=== PATIENT | female | born 1935 | race Caucasian/White ===

== ENCOUNTER → 2016-06-15 | Outpatient (CLI) | payer OTHER ==
[~2016-06-15] MED LIST: ACET325T96 PO; ASPCH81X PO; DILT-113 PO; ESCI10TA17 PO; LORA-741 PO; MULT-506 PO
[2016-06-15 15:44] LABS: BASO % 0.2 %; BASO ABS # 0.01 K/uL (0-0.2); EOS % 2.8 %; HEMATOCRIT 35.7 % (37-47); IG% 0.2 %; LYMPH % 24.8 %; LYMPH ABS # 1.57 K/uL (1.2-3.4); MEAN CELL VOLUME 85.4 fL (80-100); MEAN CORPUSCULAR HEMOGLOBIN 26.1 pg (25-34); MEAN CORPUSCULAR HGB CONC 30.5 g/dl (32-36); MEAN PLATELET VOLUME 11.6 fL (7.4-10.4); MONO % 8.5 %; NEUT % 63.5 %; PLATELET COUNT 373 K/uL (130-400); RED BLOOD COUNT 4.18 M/uL (4.2-5.4); WHITE BLOOD COUNT 6.32 K/uL (4.8-10.8)
[2016-06-15 16:09] LABS: ANISOCYTOSIS PRESENT; COMPLETE YES; LARGE PLATELETS 1+
== END | disposition home or self-care (01) ==
LOC: C.LABSPEC 15:20
PROVIDERS: ATTEND Internal Medicine
DX: D50.9 Iron deficiency anemia, unspecified (principal)

== ENCOUNTER → 2016-08-15 | Outpatient (CLI) | payer OTHER ==
[2016-08-15 15:53] LABS: BASO % 0.4 %; BASO ABS # 0.03 K/uL (0-0.2); COMPLETE YES; EOS % 4.3 %; HEMATOCRIT 36.5 % (37-47); IG% 0.1 %; LYMPH % 22.2 %; LYMPH ABS # 1.66 K/uL (1.2-3.4); MEAN CELL VOLUME 91.7 fL (80-100); MEAN CORPUSCULAR HEMOGLOBIN 29.9 pg (25-34); MEAN CORPUSCULAR HGB CONC 32.6 g/dl (32-36); MEAN PLATELET VOLUME 10.6 fL (7.4-10.4); MONO % 8.6 %; NEUT % 64.4 %; PLATELET COUNT 409 K/uL (130-400); RED BLOOD COUNT 3.98 M/uL (4.2-5.4); WHITE BLOOD COUNT 7.48 K/uL (4.8-10.8)
== END | disposition home or self-care (01) ==
LOC: C.LABSPEC 11:15
PROVIDERS: ATTEND Internal Medicine
DX: D50.9 Iron deficiency anemia, unspecified (principal)

== ENCOUNTER → 2016-12-14 | Outpatient (CLI) | payer OTHER ==
[2016-12-14 13:22] LABS: BASO % 0.3 %; BASO ABS # 0.02 K/uL (0-0.2); COMPLETE YES; IG% 0.1 %; LYMPH % 26.3 %; LYMPH ABS # 2.09 K/uL (1.2-3.4); MEAN CELL VOLUME 97.7 fL (80-100); MEAN CORPUSCULAR HEMOGLOBIN 31.9 pg (25-34); MEAN CORPUSCULAR HGB CONC 32.6 g/dl (32-36); MEAN PLATELET VOLUME 10.7 fL (7.4-10.4); MONO % 6.9 %; NEUT % 61.4 %; PLATELET COUNT 363 K/uL (130-400); RED BLOOD COUNT 3.89 M/uL (4.2-5.4); WHITE BLOOD COUNT 7.94 K/uL (4.8-10.8)
[2016-12-14 13:54] LABS: ALT/SGPT 30 U/L (12-78); AST/SGOT 27 U/L (15-37); BLOOD UREA NITROGEN 17 mg/dl (7-18); BUN/CREATININE RATIO 11.9 (10-20); CALCIUM 9.1 mg/dl (8.5-10.1); CARBON DIOXIDE 21 mmol/L (21-32); CHLORIDE 113 mmol/L (98-107); GLUCOSE 94 mg/dl (70-99); POTASSIUM 4.7 mmol/L (3.5-5.1); SODIUM 141 mmol/L (136-145)
[2016-12-14 13:56] LABS: ALB/GLOB RATIO 0.9 (0.9-2); ALKALINE PHOSPHATASE 102 U/L (45-117); CHOLESTEROL 207 mg/dl (0-200); CHOLESTEROL/HDL RATIO 3.1; HDL CHOLESTEROL 66 mg/dl; TRIGLYCERIDES 271 mg/dl (0-150); VERY LOW DENSITY LIPOPROT CALC 54 mg/dl
== END | disposition home or self-care (01) ==
LOC: C.LABSPEC 09:15
PROVIDERS: ATTEND Internal Medicine
DX: Z00.00 Encounter for general adult medical examination without abnormal findings (principal); I10 Essential (primary) hypertension; E78.5 Hyperlipidemia, unspecified; D64.9 Anemia, unspecified

== ENCOUNTER 2017-07-23 11:38 | Inpatient (IN) | payer OTHER ==
[2017-07-23] VITALS (12 sets, daily range): BP systolic 133–169; BP diastolic 56–67; PULSE 76–89; TEMP 36.3–37.3; O2SAT 94–96; BMI 15.5
[~2017-07-23] VITALS: Ht 154.9 cm; Wt 36.7 kg
[~2017-07-23 11:38] MED LIST changes: +ACET-1693 PO; -ACET325T96 PO
[2017-07-23] MEDS ORDERED: SODIUM CHLORIDE 0.9% 1000ML 1,000 ML IV STA (12:23)
--- NOTE | 2017-07-23 12:36 | EMERGENCY ROOM VISIT NOTE ---
History Report prepared by Bina: Segun Montelongo Under the Supervision of: Dr. Bette Collins M.D. First contact with patient: 12:18 Chief Complaint: SYNCOPE (NEAR SYNCOPE) Stated Complaint: NEAR SYNCOPE Nursing Triage Summary: See triage note History of Present Illness The patient is an 82 year old female who presents to the Emergency Room with complaints of constant lightheadedness beginning a few days ago. The patient states she was at [facility] this morning when she became dizzy and nauseous, in addition to her lightheadedness. She reports she has also developed shortness of breath and palpitations upon exertion over the past few days. The patient notes she has been producing more mucus as normal as well. She states she has been eating and drinking fluids, but she has still been thirsty. The patient reports she has an ostomy bag after partial gastrectomy and part of her colon removed after a reported viscous perforation. She notes she takes blood pressure medication and an iron pill. The patient states she has a history of basal cell removed from her forehead. She denies urinary symptoms. Source of History: patient Onset: few days ago Position: other (global) Quality: other (lightheadedness) Timing: constant Associated Symptoms: + SOB (on exertion), + nausea, No urinary symptoms Note: Associated symptoms: palpitations upon exertion, dizziness, more mucus production Review of Systems See HPI for pertinent positives & negatives. A total of 10 systems reviewed and were otherwise negative. Past Medical & Surgical Medical Problems: (1) Stomach ulcer Surgical Problems: (1) H/O resection of stomach Family History Patient reports no known family medical history. Social History Smoking Status: Former Smoker Alcohol Use: none Drug Use: none Marital Status: Occupation Status: retired Current/Historical Medications Scheduled Aspirin (Aspirin Chewable), 81 MG PO QAM Diltiazem Hcl Ext Rel (Tiazac), 180 MG PO QAM Escitalopram (Lexapro), 10 MG PO HS Ferrous Sulfate (Kp Ferrous Sulfate), 1 TAB PO DAILY Lorazepam (Ativan), 0.5 MG PO HS Multivitamin (Multivitamin), 1 TAB PO QAM Scheduled PRN Acetaminophen (Tylenol), 500 MG PO Q4H PRN for Pain Allergies Coded Allergies: No Known Allergies (Verified , 07/23/17) Physical Exam Vital Signs Date Time Temp Pulse Resp B/P (MAP) Pulse Ox O2 Delivery O2 Flow Rate FiO2 07/23/17 15:30 81 18 130/77 96 Room Air 07/23/17 13:30 82 18 134/62 95 Room Air 07/23/17 12:47 85 20 141/60 96 Room Air 79 140/60 93 130/50 07/23/17 12:07 79 07/23/17 11:40 36.5 86 18 149/50 96 Room Air 07/23/17 11:40 96 Room Air Physical Exam Vital signs reviewed. General: Elderly, well-appearing 82 year old female, in no significant distress. HEENT: No scleral icterus, PERRLA, neck supple. Atraumatic. Cardiovascular: Regular rate and rhythm, no extra sounds. Pulmonary: Clear to auscultation bilaterally, normal work of breathing. Abdomen: Soft, nontender, nondistended, positive bowel sounds. RLQ ostomy in place. Stool: Guaiac positive, dark melanotic stool. Ostomy Musculoskeletal: Atraumatic, no peripheral edema. Neurologic: Patient awake alert and oriented x 3, full strength in all 4 extremities. Cranial nerves 2 through 12 grossly intact. Skin: Warm, dry, no rash Medical Decision & Procedures Laboratory Results Test 07/23/17 11:45 07/23/17 12:44 07/23/17 12:52 07/23/17 13:25 RDW Standard Deviation 47.9 fL (36.4-46.3) RDW Coefficient of Variation 13.9 % (11.5-14.5) White Blood Count 10.00 K/uL (4.8-10.8) Red Blood Count 2.37 M/uL (4.2-5.4) Hemoglobin 7.7 g/dL (12.0-16.0) Hematocrit 23.1 % (37-47) Mean Corpuscular Volume 97.5 fL (80-100) Mean Corpuscular Hemoglobin 32.5 pg (25-34) Mean Corpuscular Hemoglobin Concent 33.3 g/dl (32-36) Platelet Count 377 K/uL (130-400) Mean Platelet Volume 10.2 fL (7.4-10.4) Neutrophils (%) (Auto) 74.2 % Lymphocytes (%) (Auto) 17.6 % Monocytes (%) (Auto) 6.4 % Eosinophils (%) (Auto) 1.4 % Basophils (%) (Auto) 0.2 % Neutrophils # (Auto) 7.42 K/uL (1.4-6.5) Lymphocytes # (Auto) 1.76 K/uL (1.2-3.4) Monocytes # (Auto) 0.64 K/uL (0.11-0.59) Eosinophils # (Auto) 0.14 K/uL (0-0.5) Basophils # (Auto) 0.02 K/uL (0-0.2) Immature Granulocyte % (Auto) 0.2 % Immature Granulocyte # (Auto) 0.02 K/uL (0.00-0.02) Est Creatinine Clear Calc Drug Dose 20.5 ml/min Magnesium Level 2.0 mg/dl (1.8-2.4) Total Bilirubin 0.2 mg/dl (0.2-1) Direct Bilirubin < 0.1 mg/dl (0-0.2) Aspartate Amino Transf (AST/SGOT) 22 U/L (15-37) Alanine Aminotransferase (ALT/SGPT) 18 U/L (12-78) Alkaline Phosphatase 69 U/L (45-117) Total Creatine Kinase 89 U/L (26-192) Creatine Kinase MB 2.0 ng/ml (0.5-3.6) Creatine Kinase MB Ratio 2.2 (0-3.0) Total Protein 6.4 gm/dl (6.4-8.2) Albumin 3.0 gm/dl (3.4-5.0) Bedside Glucose 135 mg/dl (70-90) Bedside Troponin I < 0.030 ng/ml (0-0.045) Prothrombin Time 10.0 SECONDS (9.0-12.0) Prothromb Time International Ratio 1.0 (0.9-1.1) Activated Partial Thromboplast Time 20.7 SECONDS (21.0-31.0) Partial Thromboplastin Ratio 0.8 Laboratory results per my review. Medications Administered Medications (Trade) Dose Ordered Sig/Rayo Route Start Time Stop Time Status Last Admin Dose Admin Sodium Chloride 1,000 ml @ 125 mls/hr Q8H STAT IV 07/23/17 12:23 07/23/17 20:22 DC 07/23/17 12:56 125 MLS/HR Pantoprazole Sodium 80 mg/ Dextrose 120 ml @ 480 mls/hr 1530 IV 07/23/17 15:30 07/23/17 15:45 DC 07/23/17 15:49 480 MLS/HR ECG Indication: weakness Rate (beats per minute): 87 Rhythm: normal sinus Findings: RBBB, no acute ischemic change, no ectopy, other (LVH, repolarization abnormality) Change: Patient's electrocardiogram interpreted by me. ED Course 1221: Past medical records reviewed. The patient was evaluated in room B07. A complete history and physical examination was performed. 1223: Ordered Sodium Chloride 1000 ml @ 125 mls/hr IV 1424: I discussed laboratory and radiographic results with her. She verbalized agreement of the treatment plan. I consented the patient for blood transfusion after explaining the risk and benefits. The patient will be evaluated for further management and care. 1458: I discussed the patient's case with Dr. Navarro [facility] Hospitalist. The patient will be evaluated for further management and care. 1500: Ordered Pantoprazole Sodium 1 ea IV Medical Decision Differential diagnosis: Etiologies such as metabolic, infection, hypo/hyperglycemia, electrolyte abnormalities, cardiac sources, intracerebral event, toxicologic, neurologic, as well as others were entertained. This pt was evaluated and appeared to be in no distress. IV access was obtained and lab work was drawn. Pt was placed on the cardiac exercise specialist. Pt is mildly orthostatic. Lab work reveals an anemia with Hgb of 7.7. Pt was hydrated with NSS. She was type and crossed for 2 units PRBC. Stool is melanotic and guaiac positive. IV protonix was initiated. Pt was consented and transfused 1 unit PRBC. She and her son were informed of the findings. Pt will be evaluated by the hospitalist service for further management. Medication Reconcilliation Current Medication List: was personally reviewed by me Blood Pressure Screening Patient's blood pressure: Elevated blood pressure Blood pressure disposition: Elevated BP felt to be situational Consults Time Called: [phone] Consulting Physician: Dr. Navarro [facility] Hospitalist Returned Call: [phone] I discussed the patient's case with Dr. Navarro [facility] Hospitalist. The patient will be evaluated for further management and care. Impression Primary Impression: GI bleed Additional Impressions: Anemia Near syncope Critical Care I have personally spent greater than 30 minutes of critical care time in the direct management of this patient. This includes bedside care, interpretation of diagnostic studies, and testing, discussion with consultants, patient, and family members, and other required patient management activities. This 30 minutes is in excess of all separately billable procedures. Scribe Attestation The scribe's documentation has been prepared under my direction and personally reviewed by me in its entirety. I confirm that the note above accurately reflects all work, treatment, procedures, and medical decision making performed by me. Departure Information Dispostion Being Evaluated By Hospitalist Referrals Dharmesh Spann M.D. (PCP) Patient Instructions My [facility] Problem Qualifiers
[2017-07-23] MEDS ORDERED: ACET-1256 PO (13:02)
[2017-07-23] MEDS ORDERED: FERR1TAB13 PO (13:02)
[2017-07-23 13:25] LABS: BASO % 0.2 %; BASO ABS # 0.02 K/uL (0-0.2); EOS % 1.4 %; EOS ABS # 0.14 K/uL (0-0.5); HEMATOCRIT 23.1 % (37-47); HEMOGLOBIN 7.7 g/dL (12.0-16.0); IG# 0.02 K/uL (0.00-0.02); LYMPH % 17.6 %; LYMPH ABS # 1.76 K/uL (1.2-3.4); MEAN CELL VOLUME 97.5 fL (80-100); MEAN CORPUSCULAR HEMOGLOBIN 32.5 pg (25-34); MEAN CORPUSCULAR HGB CONC 33.3 g/dl (32-36); MEAN PLATELET VOLUME 10.2 fL (7.4-10.4); MONO % 6.4 %; MONO ABS # 0.64 K/uL (0.11-0.59); NEUT % 74.2 %; NEUT ABS # 7.42 K/uL (1.4-6.5); PLATELET COUNT 377 K/uL (130-400); RED CELL DISTRIBUTION WIDTH CV 13.9 % (11.5-14.5); RED CELL DISTRIBUTION WIDTH SD 47.9 fL (36.4-46.3)
[2017-07-23 13:33] LABS: ALT/SGPT 18 U/L (12-78); BLOOD UREA NITROGEN 22 mg/dl (7-18); CALCIUM 8.7 mg/dl (8.5-10.1); CARBON DIOXIDE 19 mmol/L (21-32); CREATININE 1.31 mg/dl (0.60-1.20); GLUCOSE 190 mg/dl (70-99); POTASSIUM 4.2 mmol/L (3.5-5.1); SODIUM 140 mmol/L (136-145)
[2017-07-23 13:38] LABS: ALKALINE PHOSPHATASE 69 U/L (45-117); AST/SGOT 22 U/L (15-37); TOTAL PROTEIN 6.4 gm/dl (6.4-8.2)
[2017-07-23 13:55] LABS: PTT PATIENT 20.7 SECONDS (21.0-31.0)
[2017-07-23] MEDS ORDERED: ACETAMINOPHEN 500 MG TAB PO PRN (15:30)
[2017-07-23] MEDS ORDERED: PANTOprazole INJ 80 MG in DEXTROSE 5% 100ML IV SCH (15:30)
[2017-07-23] MEDS ORDERED: PANTOprazole INJ 40 MG in DEXTROSE 5% 100ML IV SCH (15:45)
[2017-07-23] MEDS ORDERED: SODIUM CHLORIDE 0.9% 1000ML 1,000 ML IV SCH (16:00)
--- NOTE | 2017-07-23 16:02 | History and Physical ---
History & Physical Date & Time of Service: Jul 23, 2017 at 15:11 Chief Complaint: Near Syncope Primary Care Physician: Dharmesh Spann M.D. History of Present Illness is an 82 year old woman here for near syncope multiple times over the past few days. During druze today she felt unwell while walking and had to sit and put her head down but she does not think she lost consciousness and has not had any loc with the other episodes. No loss of control of bladder. She also had palpitations and sob with activity. She always has some black stools after taking her iron pill but has noticed that now she has black stools all the time. She has a history of GI bleed in 2016 in which her hgb dropped to 8.0. Colonoscopy/EGD at that time did not find any source of bleed ROS Constitutional: no chills, aches, sweats or fever Respiratory: no sob,cough, sputum, or wheezing Cardiac: no chest pain, palpitations, edema, orthopnea or lightheadedness GI: no abdominal pain,some nausea today, no vomiting, diarrhea or constipation : no dysuria or hesitancy Extremities: no joint pain or weakness Skin: no rash All other systems reviewed and negative Past Medical/Surgical History PMH: HTN COPD History of TIA History of GI bleeding PSH: Hemigastrectomy with cholecystectomy and colostomy C-sections 3 colostomy 2001 for stomach ulcer and necrotic bowel, recent skin biopsies, htn Family History Patient reports no known family medical history. 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) Multi-Drug Resistant Organisms History of MDRO: No Allergies Coded Allergies: No Known Allergies (Verified , 07/23/17) Home Medications Scheduled Aspirin (Aspirin Chewable), 81 MG PO QAM Diltiazem Hcl Ext Rel (Tiazac), 180 MG PO QAM Escitalopram (Lexapro), 10 MG PO HS Ferrous Sulfate (Kp Ferrous Sulfate), 1 TAB PO DAILY Lorazepam (Ativan), 0.5 MG PO HS Multivitamin (Multivitamin), 1 TAB PO QAM Scheduled PRN Acetaminophen (Tylenol), 500 MG PO Q4H PRN for Pain Physical Exam Vital Signs Date Time Temp Pulse Resp B/P (MAP) Pulse Ox O2 Delivery O2 Flow Rate FiO2 07/23/17 13:30 82 18 134/62 95 Room Air 07/23/17 12:47 85 20 141/60 96 Room Air 79 140/60 93 130/50 07/23/17 12:07 79 07/23/17 11:40 36.5 86 18 149/50 96 Room Air 07/23/17 11:40 96 Room Air General: no distress Eyes: normal inspection, PERLL Respiratory: chest non tender, clear to auscultation, normal breath sounds, no respiratory distress, no accessory muscle use Cardiac: regular rate and rhythm, no rub or gallop, systolic murmur 2/6 lusb, no edema GI/: active bowel sounds, no abd pain or tenderness, soft, non distended, abdominal bruit left mid abdomen Extremities: normal range of motion, normal strength, non tender Neuro/Psych: alert and oriented x 3, normal mood and affect Skin: normal color, dry Diagnostics Laboratory Results Results Past 24 Hours Test 07/23/17 11:45 07/23/17 12:52 07/23/17 13:25 Range/Units White Blood Count 10.00 4.8-10.8 K/uL Red Blood Count 2.37 4.2-5.4 M/uL Hemoglobin 7.7 12.0-16.0 g/dL Hematocrit 23.1 37-47 % Mean Corpuscular Volume 97.5 80-100 fL Mean Corpuscular Hemoglobin 32.5 25-34 pg Mean Corpuscular Hemoglobin Concent 33.3 32-36 g/dl Platelet Count 377 130-400 K/uL Mean Platelet Volume 10.2 7.4-10.4 fL Neutrophils (%) (Auto) 74.2 % Lymphocytes (%) (Auto) 17.6 % Monocytes (%) (Auto) 6.4 % Eosinophils (%) (Auto) 1.4 % Basophils (%) (Auto) 0.2 % Neutrophils # (Auto) 7.42 1.4-6.5 K/uL Lymphocytes # (Auto) 1.76 1.2-3.4 K/uL Monocytes # (Auto) 0.64 0.11-0.59 K/uL Eosinophils # (Auto) 0.14 0-0.5 K/uL Basophils # (Auto) 0.02 0-0.2 K/uL RDW Standard Deviation 47.9 36.4-46.3 fL RDW Coefficient of Variation 13.9 11.5-14.5 % Immature Granulocyte % (Auto) 0.2 % Immature Granulocyte # (Auto) 0.02 0.00-0.02 K/uL Sodium Level 140 136-145 mmol/L Potassium Level 4.2 3.5-5.1 mmol/L Chloride Level 107 98-107 mmol/L Carbon Dioxide Level 19 21-32 mmol/L Anion Gap 13.0 3-11 mmol/L Blood Urea Nitrogen 22 7-18 mg/dl Creatinine 1.31 0.60-1.20 mg/dl Est Creatinine Clear Calc Drug Dose 20.5 ml/min Estimated GFR () 43.5 Estimated GFR (Non- 37.6 BUN/Creatinine Ratio 16.9 10-20 Random Glucose 190 70-99 mg/dl Calcium Level 8.7 8.5-10.1 mg/dl Magnesium Level 2.0 1.8-2.4 mg/dl Total Bilirubin 0.2 0.2-1 mg/dl Direct Bilirubin < 0.1 0-0.2 mg/dl Aspartate Amino Transf (AST/SGOT) 22 15-37 U/L Alanine Aminotransferase (ALT/SGPT) 18 12-78 U/L Alkaline Phosphatase 69 45-117 U/L Total Creatine Kinase 89 26-192 U/L Creatine Kinase MB 2.0 0.5-3.6 ng/ml Creatine Kinase MB Ratio 2.2 0-3.0 Total Protein 6.4 6.4-8.2 gm/dl Albumin 3.0 3.4-5.0 gm/dl Bedside Troponin I < 0.030 0-0.045 ng/ml Prothrombin Time 10.0 9.0-12.0 SECONDS Prothromb Time International Ratio 1.0 0.9-1.1 Activated Partial Thromboplast Time 20.7 21.0-31.0 SECONDS Partial Thromboplastin Ratio 0.8 Impression Assessment and Plan Ms. Naranjo is an 82 year old woman here for GI bleed GI bleed - admit tele - consult GI - transfuse 2 units now - Protonix gtt - clear liquid diet, npo after mn - initial troponin wnl, will repeat in 6 hours given patient's symptoms HTN - continue diltiazem once taking po - hold ASA Hx depression - continue lexapro when taking po Abdominal bruit - follow up outpatient DNR No dvt chemoprophylaxis d/t gi bleed, SCDs Advanced Directives Existing Advance Directive: Yes Existing Living Will: Yes Existing Power of Layout Artist: Yes (son (Pawan Naranjo)) Resuscitation Status DO NOT RESUSCITATE Additional Copies To Dharmesh Spann M.D. 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 Discussed with BASSAM Burdick and agree with findings and plan as documented in the note. Any exceptions or clarifications are listed here: This patient is a very pleasant 82-year-old female with a history of hypertension, COPD, and TIA with previous GI bleed, who presents with presyncope , increased black stools and her colostomy bag, and dyspnea on exertion. She was found to have a hemoglobin of 7.3 in the ER-her most recent hemoglobin in December 2016 was 12.4. She was mildly orthostatic with elevation in her heart rate upon standing, but her blood pressures remained stable. All of her symptoms developed over the last 3 days. She does also report a lot of nausea and had dry heaves this morning. Vital signs reviewed Gen: AAOx3, NAD HEENT: anicteric sclerae, EOMI CV: RRR no mgr nl S1S2 Pulm: CTAB no wcr Abd: +BS soft NT ND no masses or hernias, colostomy bag with moderate amount of green stool present, no melena or maria de jesus blood Ext: no edema, 2+ DP pulses Skin: no rashes, warm/dry Neuro: full strength throughout Laboratory values reviewed, ECG reviewed This patient is an 82-year-old female with a history of HTN, COPD, TIA, with previous GI bleed, who presents with presyncope, increased black stools and her colostomy bag, PATEL, and acute blood loss anemia. Most likely peptic ulcer disease given her history of this. -Admit to telemetry given ongoing acute GI bleeding -Transfusing 2 units PRBCs -Protonix drip ordered -Serial H&H -Discussed case with gastroenterology at the bedside-no need for urgent EGD at this time, but will give mag citrate and plan for EGD and possible colonoscopy through the ostomy tomorrow -N.p.o. after midnight and give gentle IV fluid hydration -As for her COPD, she has no active symptoms and it does not appear she is on any home inhalers -SCDs only for DVT prophylaxis Documented By: Lena Navarro
[2017-07-23] MEDS ORDERED: MAGNESIUM CITRATE 296 ML/BTL PO ONE ×3 (16:15→20:00)
--- NOTE | 2017-07-23 16:25 | Gastrointestinal Consultation ---
Gastrointestinal Consultation Date of Consultation: Jul 23, 2017 Attending Physician: DR Lena Navarro Consulting Physician: Dr Terrance Chaney Reason for Consultation: GI bleeding History of Present Illness Patient is a 82 year old female with chief complaint of lightheadedness and black stool. HPI Review of EMR found DR Szymanski did EGD/colonoscopy through ostomy and Flex sig through rectum 04/2016 for Fe def anemia. EGD showed BII anastomosis, friable anastomosis, small HH, schatzis ring. Antimony through ostom showed colon length 10 cm from ostomy to valve, 2 tubular adenoma polyps 2 cm from ostomy removed by cold snare. FS was stool in rectum could not advance. Pt had the ostomy and stomach resection from some type of ulceration and necrotic bowel in 2001. Pt is on chronic Fe and stools can be dark but last 3 days dolly stools and more stool output. No abd pain No dysphagia, No change in wt, some chills, Some nausea with dry heaves this am. She has been lightheaded and presyncopal and per Etelvina randhawa. Hgb 7.7 versus 12.4 12/2016. Some shortness of breath and lightheadedness also. Son with patient for H and P. She is on daily ASA. Past Medical/Surgical History Medical Problems: (1) Anemia Status: Acute (2) GI bleed Status: Acute (3) Near syncope Status: Acute Past Medical History: HTN Past Surgical History: s/p stomach surgery and colon surgery 2001 Family History Patient reports no known family medical history. 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) Allergies Coded Allergies: No Known Allergies (Verified , 07/23/17) Current Medications Home Meds and Scripts Medications Dose Route/Sig Max Daily Dose Days Date Category Kp Ferrous Sulfate (Ferrous Sulfate) 325 Mg Tab 1 Tab PO DAILY 30 07/23/17 Reported Tylenol (Acetaminophen) 500 Mg Tab 500 Mg PO Q4H PRN 07/23/17 Reported Multivitamin (Multivitamins) Tab 1 Tab PO QAM 04/01/16 Reported Aspirin Chewable (Aspirin) 81 Mg Chew 81 Mg PO QAM 04/01/16 Reported Lexapro (Escitalopram Oxalate) 10 Mg Tab 10 Mg PO HS 03/31/15 Reported Ativan (Lorazepam) 0.5 Mg Tab 0.5 Mg PO HS 03/31/15 Reported Tiazac (Diltiazem HCl) 180 Mg Capcr 180 Mg PO QAM 03/31/15 Reported Review of Systems see HPI otherwise 10 ROS negative Physical Exam Date Time Temp Pulse Resp B/P (MAP) Pulse Ox O2 Delivery O2 Flow Rate FiO2 07/23/17 15:30 81 18 130/77 96 Room Air 07/23/17 13:30 82 18 134/62 95 Room Air 07/23/17 12:47 85 20 141/60 96 Room Air 79 140/60 93 130/50 07/23/17 12:07 79 07/23/17 11:40 36.5 86 18 149/50 96 Room Air 07/23/17 11:40 96 Room Air General Appearance: WD/WN, no apparent distress Eyes: normal inspection, PERRL ENT: hearing grossly normal, pharynx normal Respiratory/Chest: lungs clear, no respiratory distress Cardiovascular: regular rate, rhythm, no edema Abdomen: normal bowel sounds, non tender, soft, no organomegaly, no pulsatile mass, + pertinent finding (ostomy noted with brown stool in it.) Extremities: normal range of motion, non-tender 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, alert, normal mood/affect, oriented x 3 Skin: normal color, warm/dry Laboratory Results Last 24 Hours Test 07/23/17 11:45 07/23/17 12:52 07/23/17 13:25 White Blood Count 10.00 K/uL Red Blood Count 2.37 M/uL Hemoglobin 7.7 g/dL Hematocrit 23.1 % Mean Corpuscular Volume 97.5 fL Mean Corpuscular Hemoglobin 32.5 pg Mean Corpuscular Hemoglobin Concent 33.3 g/dl Platelet Count 377 K/uL Mean Platelet Volume 10.2 fL Neutrophils (%) (Auto) 74.2 % Lymphocytes (%) (Auto) 17.6 % Monocytes (%) (Auto) 6.4 % Eosinophils (%) (Auto) 1.4 % Basophils (%) (Auto) 0.2 % Neutrophils # (Auto) 7.42 K/uL Lymphocytes # (Auto) 1.76 K/uL Monocytes # (Auto) 0.64 K/uL Eosinophils # (Auto) 0.14 K/uL Basophils # (Auto) 0.02 K/uL RDW Standard Deviation 47.9 fL RDW Coefficient of Variation 13.9 % Immature Granulocyte % (Auto) 0.2 % Immature Granulocyte # (Auto) 0.02 K/uL Sodium Level 140 mmol/L Potassium Level 4.2 mmol/L Chloride Level 107 mmol/L Carbon Dioxide Level 19 mmol/L Anion Gap 13.0 mmol/L Blood Urea Nitrogen 22 mg/dl Creatinine 1.31 mg/dl Est Creatinine Clear Calc Drug Dose 20.5 ml/min Estimated GFR () 43.5 Estimated GFR (Non- 37.6 BUN/Creatinine Ratio 16.9 Random Glucose 190 mg/dl Calcium Level 8.7 mg/dl Magnesium Level 2.0 mg/dl Total Bilirubin 0.2 mg/dl Direct Bilirubin < 0.1 mg/dl Aspartate Amino Transf (AST/SGOT) 22 U/L Alanine Aminotransferase (ALT/SGPT) 18 U/L Alkaline Phosphatase 69 U/L Total Creatine Kinase 89 U/L Creatine Kinase MB 2.0 ng/ml Creatine Kinase MB Ratio 2.2 Total Protein 6.4 gm/dl Albumin 3.0 gm/dl Bedside Troponin I < 0.030 ng/ml Prothrombin Time 10.0 SECONDS Prothromb Time International Ratio 1.0 Activated Partial Thromboplast Time 20.7 SECONDS Partial Thromboplastin Ratio 0.8 Impression acute blood loss anemia--transfuse prn melena--PPI, suspect PUD from ASA use presyncope--from anemia and GI bleeding s/p stomach surgery s/p colon surgery Discussed with Dr Navarro and patient and son since stool in ostomy brown there is no current brisk bleeding so recommend blood resuscitation overnight and then endocopy tomorrow. Recommend EGD and since only 10 cm of colon be prepared to do colonoscopy through ostomy if EGD negative. Procs and risks explained which include but not limited to med reaction, bleeding, perforation, aspiration , and missed lesions.
[2017-07-23] MEDS: LORAZEPAM 0.5 MG TAB PO SCH (21:27)
[2017-07-23] MEDS: ESCITALOPRAM OXALATE 10 MG TAB PO SCH (21:27)
[2017-07-23] MEDS: PANTOprazole INJ 40 MG in DEXTROSE 5% 100ML IV SCH (21:44)
[2017-07-23 23:32] LABS: HEMATOCRIT 34.3 % (37-47); HEMOGLOBIN 11.8 g/dL (12.0-16.0)
[2017-07-23] MEDS: D5W AND NSS 1,000 ML IV SCH (23:34)
[2017-07-24] VITALS (8 sets, daily range): BP systolic 126–187; BP diastolic 47–80; PULSE 77–85; TEMP 36.4–37.2; O2SAT 94–98; Ht 154.9 cm; Wt 36.7 kg
[2017-07-24] MEDS: PANTOprazole INJ 40 MG in DEXTROSE 5% 100ML IV SCH ×3 (02:24→11:38)
[2017-07-24 05:52] LABS: HEMATOCRIT 33.1 % (37-47); HEMOGLOBIN 11.2 g/dL (12.0-16.0); MEAN CELL VOLUME 92.5 fL (80-100); MEAN CORPUSCULAR HEMOGLOBIN 31.3 pg (25-34); MEAN CORPUSCULAR HGB CONC 33.8 g/dl (32-36); MEAN PLATELET VOLUME 9.9 fL (7.4-10.4); PLATELET COUNT 272 K/uL (130-400); RED CELL DISTRIBUTION WIDTH CV 15.3 % (11.5-14.5); RED CELL DISTRIBUTION WIDTH SD 50.7 fL (36.4-46.3)
[2017-07-24 06:36] LABS: CREATININE 1.29 mg/dl (0.60-1.20); POTASSIUM 4.1 mmol/L (3.5-5.1)
[2017-07-24] MEDS: MULTIVITAMIN TAB PO SCH (07:52)
[2017-07-24] MEDS: FERROUS SULFATE 325 MG TAB PO SCH (07:52)
[2017-07-24] MEDS: DILTIAZEM HCL (TIAzac) 180 MG CAPCR PO SCH ×2 (07:52→17:00)
[2017-07-24] MEDS ORDERED: MAGNESIUM CITRATE 296 ML/BTL PO ONE (08:00)
[2017-07-24] MEDS: D5W AND NSS 1,000 ML IV SCH (11:38)
[2017-07-24 11:46] LABS: HEMATOCRIT 33.6 % (37-47); HEMOGLOBIN 11.4 g/dL (12.0-16.0)
--- NOTE | 2017-07-24 13:01 | Gastroenterology Progress Note ---
Progress Note Date of Service: Jul 24, 2017 Subjective Pt evaluation today including: conversation w/ patient, physical exam, chart review, lab review, review of studies, review of inpatient medication list CC f/u melena HPI Prep post 2nd dose of Mag citrate (this am) good with green fluid in ostomy. NO abd pain. Review of Systems Respiratory: No shortness of breath Cardiac: No chest pain Medications Current Inpatient Medications Medications (Trade) Dose Ordered Sig/Rayo Route Start Time Stop Time Status Last Admin Dose Admin Acetaminophen (Tylenol Tab) 500 mg Q4H PRN PO 07/23/17 15:30 08/22/17 15:29 Diltiazem HCl (TIAzac CAP) 180 mg QAM PO 07/24/17 09:00 08/23/17 08:59 Escitalopram Oxalate (Lexapro Tab) 10 mg HS PO 07/23/17 21:00 08/22/17 20:59 07/23/17 21:27 10 MG Lorazepam (Ativan Tab) 0.5 mg HS PO 07/23/17 21:00 08/22/17 20:59 07/23/17 21:27 0.5 MG Multivitamins (Multivitamin Tab) 1 tab QAM PO 07/24/17 09:00 08/23/17 08:59 Ferrous Sulfate (Feosol Tab) 325 mg DAILY PO 07/24/17 09:00 08/23/17 08:59 Dextrose/Sodium Chloride 1,000 ml @ 75 mls/hr [id number] IV 07/23/17 23:59 08/22/17 23:58 07/24/17 11:38 75 MLS/HR Pantoprazole Sodium 40 mg/ Dextrose 100 ml @ 20 mls/hr Q5H IV 07/23/17 21:30 08/22/17 21:29 07/24/17 11:38 20 MLS/HR Objective Vital Signs Date Time Temp Pulse Resp B/P (MAP) Pulse Ox O2 Delivery O2 Flow Rate FiO2 07/24/17 12:13 36.9 80 18 162/71 (101) 95 Room Air 07/24/17 08:00 Room Air 07/24/17 07:51 36.9 82 18 168/71 (103) 94 Room Air 07/24/17 04:00 36.6 84 16 164/74 (104) 94 Room Air 07/24/17 04:00 Room Air 07/24/17 00:05 Room Air 07/23/17 22:30 36.7 82 16 152/65 07/23/17 21:30 36.7 89 16 169/62 07/23/17 21:00 37.1 81 16 161/56 07/23/17 20:30 36.9 81 16 155/56 07/23/17 20:15 37.3 76 18 153/62 07/23/17 20:05 Room Air 07/23/17 20:00 37.3 80 18 151/64 07/23/17 19:46 36.7 80 18 157/64 96 07/23/17 18:33 37.0 76 18 133/58 94 07/23/17 18:00 37.3 77 18 143/56 96 07/23/17 17:53 36.3 79 20 153/63 Room Air 07/23/17 17:03 84 20 144/67 96 07/23/17 16:50 37.0 84 20 144/67 96 07/23/17 16:30 37.2 87 20 155/62 96 07/23/17 15:30 81 18 130/77 96 Room Air 07/23/17 13:30 82 18 134/62 95 Room Air Physical Exam General Appearance: WD/WN, no apparent distress Respiratory/Chest: lungs clear, no respiratory distress Cardiovascular: regular rate, rhythm, no edema Neurologic/Psych: normal mood/affect, oriented x 3 Skin: normal color Laboratory Results Last 24 Hours Test 07/23/17 13:25 07/23/17 18:06 07/23/17 23:15 07/24/17 05:32 Prothrombin Time 10.0 SECONDS Prothromb Time International Ratio 1.0 Activated Partial Thromboplast Time 20.7 SECONDS Partial Thromboplastin Ratio 0.8 Troponin I < 0.015 ng/ml Hemoglobin 11.8 g/dL 11.2 g/dL Hematocrit 34.3 % 33.1 % White Blood Count 6.70 K/uL Red Blood Count 3.58 M/uL Mean Corpuscular Volume 92.5 fL Mean Corpuscular Hemoglobin 31.3 pg Mean Corpuscular Hemoglobin Concent 33.8 g/dl RDW Standard Deviation 50.7 fL RDW Coefficient of Variation 15.3 % Platelet Count 272 K/uL Mean Platelet Volume 9.9 fL Sodium Level 141 mmol/L Potassium Level 4.1 mmol/L Chloride Level 111 mmol/L Carbon Dioxide Level 24 mmol/L Anion Gap 6.0 mmol/L Blood Urea Nitrogen 12 mg/dl Creatinine 1.29 mg/dl Est Creatinine Clear Calc Drug Dose 19.5 ml/min Estimated GFR () 44.3 Estimated GFR (Non- 38.3 BUN/Creatinine Ratio 9.7 Random Glucose 104 mg/dl Calcium Level 8.0 mg/dl Test 07/24/17 08:50 07/24/17 11:28 Urine Color YELLOW Urine Appearance CLEAR Urine pH 5.0 Urine Specific [place] 1.011 Urine Protein NEG Urine Glucose (UA) NEG Urine Ketones NEG Urine Occult Blood TRACE Urine Nitrite NEG Urine Bilirubin NEG Urine Urobilinogen NEG Urine Leukocyte Esterase NEG Urine WBC (Auto) 1-5 /hpf Urine RBC (Auto) 0-4 /hpf Urine Hyaline Casts (Auto) 0 /lpf Urine Epithelial Cells (Auto) 0-5 /lpf Urine Bacteria (Auto) NEG Hemoglobin 11.4 g/dL Hematocrit 33.6 % Assessment and Plan acute blood loss anemia--stable melena--PPI, suspect PUD from ASA use presyncope--from anemia and GI bleeding s/p stomach surgery s/p colon surgery EGD/colo today. . Procs and risks explained which include but not limited to med reaction, bleeding, perforation, aspiration, and missed lesions.
--- NOTE | 2017-07-24 13:29 | Hospitalist Progress Note ---
Hospitalist Progress Note Date of Service Jul 24, 2017. (Etelvina Burdick .BASSAM) Subjective Pt evaluation today including: conversation w/ patient, physical exam, chart review, lab review, review of inpatient medication list Voiding: no voiding problems Ms. Naranjo denies further sob or palpitations though she has not been out of bed much. She has been NPO for EGD today. She has not had any dark stools today ROS Constitutional: no chills, aches, sweats or fever Respiratory: no sob,cough, sputum, or wheezing Cardiac: no chest pain, palpitations, edema, orthopnea or lightheadedness GI: no abdominal pain, nausea, vomiting, diarrhea or constipation : no dysuria or hesitancy Extremities: no joint pain or weakness Skin: no rash All other systems reviewed and negative (Etelvina Burdick .BASSAM) Medications Medications (Trade) Dose Ordered Sig/Rayo Route Start Time Stop Time Status Last Admin Dose Admin Pantoprazole Sodium 80 mg/ Dextrose 120 ml @ 480 mls/hr 1530 IV 07/23/17 15:30 07/23/17 15:45 DC 07/23/17 15:49 480 MLS/HR Pantoprazole Sodium 40 mg/ Dextrose 100 ml @ 20 mls/hr Q5H IV 07/23/17 15:45 07/23/17 20:44 DC 07/23/17 16:38 20 MLS/HR Escitalopram Oxalate (Lexapro Tab) 10 mg HS PO 07/23/17 21:00 08/22/17 20:59 07/23/17 21:27 10 MG Lorazepam (Ativan Tab) 0.5 mg HS PO 07/23/17 21:00 08/22/17 20:59 07/23/17 21:27 0.5 MG Dextrose/Sodium Chloride 1,000 ml @ 75 mls/hr [id number] IV 07/23/17 23:59 08/22/17 23:58 07/24/17 11:38 75 MLS/HR Pantoprazole Sodium 40 mg/ Dextrose 100 ml @ 20 mls/hr Q5H IV 07/23/17 21:30 08/22/17 21:29 07/24/17 11:38 20 MLS/HR Magnesium Citrate (Citrate Of Magnesia Soln) 296 ml ONE ONCE PO 07/23/17 20:00 07/23/17 20:01 DC 07/23/17 21:27 296 ML Magnesium Citrate (Citrate Of Magnesia Soln) 296 ml NOW ONCE PO 07/24/17 08:00 07/24/17 08:01 DC 07/24/17 07:57 296 ML (Etelvina Burdick CRNP) Objective Vital Signs Date Time Temp Pulse Resp B/P (MAP) Pulse Ox O2 Delivery O2 Flow Rate FiO2 07/24/17 12:13 36.9 80 18 162/71 (101) 95 Room Air 07/24/17 08:00 Room Air 07/24/17 07:51 36.9 82 18 168/71 (103) 94 Room Air 07/24/17 04:00 36.6 84 16 164/74 (104) 94 Room Air 07/24/17 04:00 Room Air 07/24/17 00:05 Room Air 07/23/17 22:30 36.7 82 16 152/65 07/23/17 21:30 36.7 89 16 169/62 07/23/17 21:00 37.1 81 16 161/56 07/23/17 20:30 36.9 81 16 155/56 07/23/17 20:15 37.3 76 18 153/62 07/23/17 20:05 Room Air 07/23/17 20:00 37.3 80 18 151/64 07/23/17 19:46 36.7 80 18 157/64 96 07/23/17 18:33 37.0 76 18 133/58 94 07/23/17 18:00 37.3 77 18 143/56 96 07/23/17 17:53 36.3 79 20 153/63 Room Air 07/23/17 17:03 84 20 144/67 96 07/23/17 16:50 37.0 84 20 144/67 96 07/23/17 16:30 37.2 87 20 155/62 96 07/23/17 15:30 81 18 130/77 96 Room Air 07/23/17 13:30 82 18 134/62 95 Room Air (Etelvina Burdick CRNP) Physical Exam Notes: General: no distress Eyes: normal inspection, PERLL Respiratory: chest non tender, clear to auscultation, normal breath sounds, no respiratory distress, no accessory muscle use Cardiac: regular rate and rhythm, no rub or gallop, no murmur, no edema, no jvd GI/: active bowel sounds, no abd pain or tenderness, soft, non distended Extremities: normal range of motion, normal strength, non tender Neuro/Psych: alert and oriented x 3, normal mood and affect Skin: normal color, dry (Guillard, Etelvina ., SALESFORCE SPECIALIST) Laboratory Results Last 24 Hours Test 07/23/17 13:25 07/23/17 18:06 07/23/17 23:15 07/24/17 05:32 Prothrombin Time 10.0 SECONDS Prothromb Time International Ratio 1.0 Activated Partial Thromboplast Time 20.7 SECONDS Partial Thromboplastin Ratio 0.8 Troponin I < 0.015 ng/ml Hemoglobin 11.8 g/dL 11.2 g/dL Hematocrit 34.3 % 33.1 % White Blood Count 6.70 K/uL Red Blood Count 3.58 M/uL Mean Corpuscular Volume 92.5 fL Mean Corpuscular Hemoglobin 31.3 pg Mean Corpuscular Hemoglobin Concent 33.8 g/dl RDW Standard Deviation 50.7 fL RDW Coefficient of Variation 15.3 % Platelet Count 272 K/uL Mean Platelet Volume 9.9 fL Sodium Level 141 mmol/L Potassium Level 4.1 mmol/L Chloride Level 111 mmol/L Carbon Dioxide Level 24 mmol/L Anion Gap 6.0 mmol/L Blood Urea Nitrogen 12 mg/dl Creatinine 1.29 mg/dl Est Creatinine Clear Calc Drug Dose 19.5 ml/min Estimated GFR () 44.3 Estimated GFR (Non- 38.3 BUN/Creatinine Ratio 9.7 Random Glucose 104 mg/dl Calcium Level 8.0 mg/dl Test 07/24/17 08:50 07/24/17 11:28 Urine Color YELLOW Urine Appearance CLEAR Urine pH 5.0 Urine Specific [place] 1.011 Urine Protein NEG Urine Glucose (UA) NEG Urine Ketones NEG Urine Occult Blood TRACE Urine Nitrite NEG Urine Bilirubin NEG Urine Urobilinogen NEG Urine Leukocyte Esterase NEG Urine WBC (Auto) 1-5 /hpf Urine RBC (Auto) 0-4 /hpf Urine Hyaline Casts (Auto) 0 /lpf Urine Epithelial Cells (Auto) 0-5 /lpf Urine Bacteria (Auto) NEG Hemoglobin 11.4 g/dL Hematocrit 33.6 % (Etelvina Burdick CRNP) Assessment and Plan Ms. Naranjo is an 82 year old woman here for GI bleed GI bleed - consulted GI - for EGD today - transfused 2 units - hgb has been stable since then around 11 - Protonix gtt - npo for scope - trop negative HTN - continue diltiazem once taking po - continue to hold ASA Hx depression - continue lexapro when taking po Abdominal bruit - follow up outpatient DNR No dvt chemoprophylaxis d/t gi bleed, SCDs (Etelvina Burdick CRNP) TUBE TRAILER FILLER Physician Supervision Note: I interviewed and examined the patient. Discussed with Etelvina Burdick TUBE TRAILER FILLER and agree with findings and plan as documented in the note. Any exceptions or clarifications are listed here: None Patient recovering nicely after her upper endoscopy revealing a duodenal ulcer she is begun on Carafate and Protonix she is doing well having a dietitian evaluation at this time. Her post transfusion hemoglobin is 11 Vital signs are stable temperature 69 pulse 80 respiration rate 18 BP is slightly elevated 160/71 she is even higher after her procedure she however did not get her diltiazem this morning she is giving her full dose of diltiazem 180 this evening we'll follow her blood pressure she is hydralazine available when necessary for hypertension Acute blood loss anemia for a duodenal ulcer with hemorrhage treated now with proton pump inhibitor. Hypertensions as expected from her medication that was held prior to her procedure Documented By: Seamus Collins (Seamus Collins M.D.)
[2017-07-24] MEDS ORDERED: LIDOCAINE HCL 2% 2 ML VIAL (20MG/ML) ONE (15:24)
[2017-07-24] MEDS ORDERED: PROPOFOL IV EMULSION 10 MG/ML 20 ML VIAL IV ONE (15:24)
--- NOTE | 2017-07-24 15:31 | GI REPORT ---
Procedure Date: 07/24/2017 3:09 PM Procedure: Upper GI endoscopy Indications: Melena Medicines: Monitored Anesthesia Care Complications: No immediate complications. Estimated blood loss: None. Estimated Blood Loss: Estimated blood loss: none. Procedure: Pre-Anesthesia Assessment: - Prior to the procedure, a History and Physical was performed, and patient medications and allergies were reviewed. The patient is competent. The risks and benefits of the procedure and the sedation options and risks were discussed with the patient. All questions were answered and informed consent was obtained. Patient identification and proposed procedure were verified by the physician, the nurse and the qa architect in the procedure room. Mental Status Examination: alert and oriented. Airway Examination: normal oropharyngeal airway and neck mobility. Respiratory Examination: clear to auscultation. CV Examination: normal. Prophylactic Antibiotics: The patient does not require prophylactic antibiotics. Prior Anticoagulants: The patient has taken no previous anticoagulant or antiplatelet agents. After reviewing the risks and benefits, the patient was deemed in satisfactory condition to undergo the procedure. The anesthesia plan was to use monitored anesthesia care (MAC). Immediately prior to administration of medications, the patient was re-assessed for adequacy to receive sedatives. The heart rate, respiratory rate, oxygen saturations, blood pressure, adequacy of pulmonary ventilation, and response to care were monitored throughout the procedure. The physical status of the patient was re-assessed after the procedure. After obtaining informed consent, the endoscope was passed under direct vision. Throughout the procedure, the patient's blood pressure, pulse, and oxygen saturations were monitored continuously. The On-site loaner was introduced through the mouth, and advanced to the afferent and efferent jejunal loops. The upper GI endoscopy was accomplished without difficulty. The patient tolerated the procedure well. Findings: The Z-line was regular and was found 45 cm from the incisors. Evidence of a patent Billroth II gastrojejunostomy was found. This was traversed. The afferent and efferent limbs were examined. Diffuse moderately erythematous mucosa without bleeding was found in the cardia, in the gastric fundus and in the gastric body. One non-bleeding cratered ulcer with a flat visible vessel was found just distal to the gastrojejunal anastomosis. The lesion was 10 mm in largest dimension. No fresh nor old blood noted. The exam was otherwise without abnormality. Impression: - Z-line regular, 45 cm from the incisors. - Patent Billroth II gastrojejunostomy was found. - Erythematous mucosa in the cardia, gastric fundus and gastric body. - One non-bleeding jejunal ulcer with flat visible vessel. - No fresh nor old blood noted. - The examination was otherwise normal. - No specimens collected. Recommendation: - [facility] care. - Soft diet. Protonix 40 mg po bid. Carafate 1 gm ac and qhs Terrance Chaney M.D. Terrance Chaney MD 07/24/2017 3:31:03 PM This report has been signed electronically. Note Initiated On: 07/24/2017 3:09 PM I attest to the content of the Intraoperative Record and orders documented therein, exceptions below
--- NOTE | 2017-07-24 15:37 | Progress Note ---
Progress Note Date of Service Jul 24, 2017. Progress Note Pt no complaints post EGD. NO abd pain. Went over results of EGD with patient and 2 sons. Plan protonix bid, carafate suspension. Recommend EGD outpt in 8 weeks to document healing.
--- NOTE | 2017-07-24 15:49 | Anesthesiology Progress Note ---
Anesthesia Post Op Note Date & Time Jul 24, 2017 at 15:49 Vital Signs Pain Intensity: 0 Vital Signs Past 12 Hours Date Time Temp Pulse Resp B/P (MAP) Pulse Ox O2 Delivery O2 Flow Rate FiO2 07/24/17 15:36 78 18 168/76 (106) 96 Room Air 07/24/17 15:21 76 18 150/74 (99) 97 Room Air 07/24/17 14:19 37.0 83 18 175/91 (119) 100 Room Air 07/24/17 12:13 36.9 80 18 162/71 (101) 95 Room Air 07/24/17 12:00 Room Air 07/24/17 08:00 Room Air 07/24/17 07:51 36.9 82 18 168/71 (103) 94 Room Air 07/24/17 04:00 36.6 84 16 164/74 (104) 94 Room Air 07/24/17 04:00 Room Air Notes Mental Status: alert / awake / arousable, participated in evaluation Pt Amnestic to Procedure: Yes Nausea / Vomiting: adequately controlled Pain: adequately controlled Airway Patency, RR, SpO2: stable & adequate BP & HR: stable & adequate Hydration State: stable & adequate Anesthetic Complications: no major complications apparent
[2017-07-24] MEDS: SUCRALFATE 1 GM/10 ML UDC PO SCH ×2 (17:00→20:55)
[2017-07-24] MEDS ORDERED: HydrALAZINE HCL 20 MG/ML VIAL IV PRN (17:15)
[2017-07-24] MEDS: PANTOprazole SOD 40 MG TAB PO SCH (20:55)
[2017-07-24] MEDS: LORAZEPAM 0.5 MG TAB PO SCH (20:55)
[2017-07-24] MEDS: ESCITALOPRAM OXALATE 10 MG TAB PO SCH (20:56)
[2017-07-25] VITALS (8 sets, daily range): BP systolic 137–170; BP diastolic 57–73; PULSE 78–87; TEMP 36.8–37.3; O2SAT 94–98
[2017-07-25] MEDS: SUCRALFATE 1 GM/10 ML UDC PO SCH ×2 (05:41→11:00)
[2017-07-25 05:51] LABS: BASO % 0.1 %; BASO ABS # 0.01 K/uL (0-0.2); EOS % 1.4 %; EOS ABS # 0.11 K/uL (0-0.5); HEMATOCRIT 34.1 % (37-47); HEMOGLOBIN 11.9 g/dL (12.0-16.0); IG# 0.01 K/uL (0.00-0.02); LYMPH % 15.6 %; LYMPH ABS # 1.25 K/uL (1.2-3.4); MEAN CELL VOLUME 91.7 fL (80-100); MEAN CORPUSCULAR HGB CONC 34.9 g/dl (32-36); MEAN PLATELET VOLUME 9.5 fL (7.4-10.4); MONO % 10.8 %; MONO ABS # 0.87 K/uL (0.11-0.59); NEUT ABS # 5.77 K/uL (1.4-6.5); PLATELET COUNT 310 K/uL (130-400); RED CELL DISTRIBUTION WIDTH CV 15.7 % (11.5-14.5); RED CELL DISTRIBUTION WIDTH SD 51.4 fL (36.4-46.3); WHITE BLOOD COUNT 8.02 K/uL (4.8-10.8)
[2017-07-25 06:28] LABS: ALBUMIN 2.7 gm/dl (3.4-5.0); CREATININE 1.35 mg/dl (0.60-1.20); POTASSIUM 3.7 mmol/L (3.5-5.1)
[2017-07-25 06:30] LABS: TOTAL PROTEIN 6.1 gm/dl (6.4-8.2)
[2017-07-25] MEDS: MULTIVITAMIN TAB PO SCH (08:07)
[2017-07-25] MEDS: FERROUS SULFATE 325 MG TAB PO SCH (08:07)
[2017-07-25] MEDS: PANTOprazole SOD 40 MG TAB PO SCH (08:08)
[2017-07-25] MEDS: DILTIAZEM HCL (TIAzac) 180 MG CAPCR PO SCH (08:37)
[2017-07-25] MEDS ORDERED: CRFUDL PO (10:58)
[2017-07-25] MEDS ORDERED: PRT40 PO (10:58)
--- NOTE | 2017-07-25 11:04 | Discharge Instructions ---
Discharge Instructions Date of Service Jul 25, 2017. Admission Reason for Admission: Gi Bleed Discharge Discharge Diagnosis / Problem: GI Bleed Discharge Goals Goal(s): Improve disease control Activity Recommendations Activity Limitations: resume your previous activity Exercise/Sports Limitations: as tolerated . Instructions / Follow-Up Instructions / Follow-Up Please follow up with your primary care provider in about a week Please follow up with Dr. Chaney in 1-2 weeks. Please alert your primary care provider if you start seeing dark stools return You can progress your diet as you can tolerate it from low fiber Current Hospital Diet Patient's current hospital diet: Low Fiber Diet Discharge Diet Recommended Diet: Low Fiber Diet Procedures Procedures Performed: EGD Pending Studies Studies pending at discharge: no Medical Emergencies . Who to Call and When: Medical Emergencies: If at any time you feel your situation is an emergency, please call 911 immediately. . Non-Emergent Contact Non-Emergency issues call your: Primary Care Provider Call Non-Emergent contact if: you have a fever, you have any medication questions . Past History Medical & Surgical History: (1) GI bleed (2) Stomach ulcer (3) Anemia (4) Near syncope . "Provider Documentation" section prepared by Etelvina Burdick. . VTE Core Measure Inpt VTE Proph given/why not?: Contraindicated
--- NOTE | 2017-07-25 11:14 | Discharge Summary ---
Discharge Summary Date of Service Jul 25, 2017. Discharge Summary Admission Date: Jul 23, 2017 at 15:36 Discharge Date: Jul 25, 2017 Discharge Disposition: Home Principal Diagnosis: GI Bleed Problems/Secondary Diagnoses: HTN Procedures: DICTATED BY: Terrance Chaney M.D. Procedure Date: 07/24/2017 3:09 PM Procedure: Upper GI endoscopy Indications: Melena Medicines: Monitored Anesthesia Care Complications: No immediate complications. Estimated blood loss: None. Estimated Blood Loss: Estimated blood loss: none. Procedure: Pre-Anesthesia Assessment: - Prior to the procedure, a History and Physical was performed, and patient medications and allergies were reviewed. The patient is competent. The risks and benefits of the procedure and the sedation options and risks were discussed with the patient. All questions were answered and informed consent was obtained. Patient identification and proposed procedure were verified by the physician, the nurse and the hatchery employee in the procedure room. Mental Status Examination: alert and oriented. Airway Examination: normal oropharyngeal airway and neck mobility. Respiratory Examination: clear to auscultation. CV Examination: normal. Prophylactic Antibiotics: The patient does not require prophylactic antibiotics. Prior Anticoagulants: The patient has taken no previous anticoagulant or antiplatelet agents. After reviewing the risks and benefits, the patient was deemed in satisfactory condition to undergo the procedure. The anesthesia plan was to use monitored anesthesia care (MAC). Immediately prior to administration of medications, the patient was re-assessed for adequacy to receive sedatives. The heart rate, respiratory rate, oxygen saturations, blood pressure, adequacy of pulmonary ventilation, and response to care were monitored throughout the procedure. The physical status of the patient was re-assessed after the procedure. After obtaining informed consent, the endoscope was passed under direct vision. Throughout the procedure, the patient's blood pressure, pulse, and oxygen saturations were monitored continuously. The On-site loaner was introduced through the mouth, and advanced to the afferent and efferent jejunal loops. The upper GI endoscopy was accomplished without difficulty. The patient tolerated the procedure well. Findings: The Z-line was regular and was found 45 cm from the incisors. Evidence of a patent Billroth II gastrojejunostomy was found. This was traversed. The afferent and efferent limbs were examined. Diffuse moderately erythematous mucosa without bleeding was found in the cardia, in the gastric fundus and in the gastric body. One non-bleeding cratered ulcer with a flat visible vessel was found just distal to the gastrojejunal anastomosis. The lesion was 10 mm in largest dimension. No fresh nor old blood noted. The exam was otherwise without abnormality. Impression: - Z-line regular, 45 cm from the incisors. - Patent Billroth II gastrojejunostomy was found. - Erythematous mucosa in the cardia, gastric fundus and gastric body. - One non-bleeding jejunal ulcer with flat visible vessel. - No fresh nor old blood noted. - The examination was otherwise normal. - No specimens collected. Recommendation: - [facility] to [facility] care. - Soft diet. Protonix 40 mg po bid. Carafate 1 gm ac and qhs Terrance Chaney M.D. Terrance Chaney MD 07/24/2017 3:31:03 PM This report has been signed electronically. Note Initiated On: 07/24/2017 3:09 PM I attest to the content of the Intraoperative Record and orders documented therein, exceptions below Dictated: 07/24/17 [id number] Consultations: Dr. Chaney from GI Medication Reconciliation New Medications: Pantoprazole (Pantoprazole Sodium) 40 Mg Tab 40 MG PO BID for 30 Days, #60 TAB Sucralfate (Sucralfate) 1 Gm/10 Ml Susp 1 GM PO ACHS for 30 Days, #120 DOSE Continued Medications: Acetaminophen (Tylenol) 500 Mg Tab 500 MG PO Q4H PRN for Pain, TAB Diltiazem Hcl Ext Rel (Tiazac) 180 Mg Capcr 180 MG PO QAM, CAP Escitalopram (Lexapro) 10 Mg Tab 10 MG PO HS, TAB Ferrous Sulfate (Kp Ferrous Sulfate) 325 Mg Tab 1 TAB PO DAILY for 30 Days, #30 TAB 3 Refills Lorazepam (Ativan) 0.5 Mg Tab 0.5 MG PO HS, TAB Multivitamin (Multivitamin) Tab 1 TAB PO QAM, TAB Discontinued Medications: Aspirin (Aspirin Chewable) 81 Mg Chew 81 MG PO QAM Discharge Exam ROS Constitutional: no chills, aches, sweats or fever Respiratory: no sob,cough, sputum, or wheezing Cardiac: no chest pain, palpitations, edema, orthopnea or lightheadedness GI: no abdominal pain, nausea, vomiting, diarrhea or constipation : no dysuria or hesitancy Extremities: no joint pain or weakness Skin: no rash All other systems reviewed and negative General: no distress Eyes: normal inspection, PERLL Respiratory: chest non tender, clear to auscultation, normal breath sounds, no respiratory distress, no accessory muscle use Cardiac: regular rate and rhythm, no rub or gallop, no murmur, no edema, no jvd GI/: active bowel sounds, no abd pain or tenderness, soft, non distended Extremities: normal range of motion, normal strength, non tender Neuro/Psych: alert and oriented x 3, normal mood and affect Skin: normal color, dry Hospital Course is an 82 year old woman here for near syncope multiple times over the past few days. During mu-ism today she felt unwell while walking and had to sit and put her head down but she does not think she lost consciousness and has not had any loc with the other episodes. No loss of control of bladder. She also had palpitations and sob with activity. She always has some black stools after taking her iron pill but had noticed that she was having black stools all the time. She has a history of GI bleed in 2016 in which her hgb dropped to 8.0. Colonoscopy/EGD at that time did not find any source of bleed GI bleed - consulted GI - EGD found a jejunal non bleeding ulcer - transfused 2 units 07/23 - hgb has been stable since then around 11 - Protonix gtt and then changed to protonix bid po - trop negative x2 - patient ambulated halls with nursing, did well, patient felt she was about her baseline HTN - continue diltiazem - discontinued ASA Hx depression - continue lexapro when taking po Abdominal bruit - follow up outpatient GEOMAGNETIST Physician Supervision Note: I interviewed and examined the patient. Discussed with Etelvina Burdick GEOMAGNETIST and agree with findings and plan as documented in the note. Any exceptions or clarifications are listed here: None Patient was seen prior to discharge was comfortable she is very thin and frail but was able tolerate her diet she is given instructions on dietary restrictions in the upcoming weeks to allow better healing of her duodenal ulcer vital signs are reviewed and are stable to be discharged home on the twice a day pantoprazole and short duration sucralfate with follow-up Dr. Frances Garnett and Dr. Chaney Documented By: Seamus Collins Total Time Spent: Greater than 30 minutes This includes examination of the patient, discharge planning, medication reconciliation, and communication with other providers. Discharge Instructions Please refer to the electronic Patient Visit Report (Discharge Instructions) for additional information. Follow-Up Fu with Dr. Chaney in 1-2 weeks, EGD in [address] Frances Garnett in 1 week Additional Copies To Dharmesh Spann M.D.
== END 2017-07-25 14:47 | disposition home or self-care (01) | DRG 378 ==
LOC: C.EDB 11:38 → EDBD 11:38 → C.MED 15:36 → ENRESERV 15:59
PROVIDERS: ADMIT Family Medicine; ATTEND Internal Medicine
PROC: 0DJ08ZZ Inspection of Upper Intestinal Tract, Via Natural or Artificial Opening Endoscopic (ICD-10-PCS; principal; 2017-07-24 14:30)
DX: K28.4 Chronic or unspecified gastrojejunal ulcer with hemorrhage (principal); D62 Acute posthemorrhagic anemia; K92.1 Melena; I10 Essential (primary) hypertension; J44.9 Chronic obstructive pulmonary disease, unspecified; F32.9 Major depressive disorder, single episode, unspecified; T39.015A Adverse effect of aspirin, initial encounter; Z66 Do not resuscitate; Z79.82 Long term (current) use of aspirin; Z79.899 Other long term (current) drug therapy; Z86.73 Personal history of transient ischemic attack (TIA), and cerebral infarction without residual deficits; Z93.3 Colostomy status; Z87.891 Personal history of nicotine dependence

== ENCOUNTER → 2017-07-31 | Outpatient (CLI) | payer OTHER ==
[~2017-07-31] MED LIST changes: +ACET-1256 PO; -ACET-1693 PO; -ASPCH81X PO; +CRFUDL PO; +FERR1TAB13 PO; +PRT40 PO
[2017-07-31 13:57] LABS: BASO % 0.4 %; BASO ABS # 0.03 K/uL (0-0.2); EOS % 5.1 %; EOS ABS # 0.36 K/uL (0-0.5); HEMATOCRIT 37.2 % (37-47); HEMOGLOBIN 12.4 g/dL (12.0-16.0); IG# 0.01 K/uL (0.00-0.02); LYMPH % 23.8 %; LYMPH ABS # 1.69 K/uL (1.2-3.4); MEAN CELL VOLUME 94.9 fL (80-100); MEAN CORPUSCULAR HEMOGLOBIN 31.6 pg (25-34); MEAN CORPUSCULAR HGB CONC 33.3 g/dl (32-36); MEAN PLATELET VOLUME 10.4 fL (7.4-10.4); MONO % 10.2 %; MONO ABS # 0.72 K/uL (0.11-0.59); NEUT % 60.4 %; NEUT ABS # 4.28 K/uL (1.4-6.5); PLATELET COUNT 426 K/uL (130-400); RED CELL DISTRIBUTION WIDTH CV 14.6 % (11.5-14.5); RED CELL DISTRIBUTION WIDTH SD 50.6 fL (36.4-46.3); WHITE BLOOD COUNT 7.09 K/uL (4.8-10.8)
== END | disposition home or self-care (01) ==
LOC: C.LABSPEC 12:52
PROVIDERS: ATTEND Internal Medicine
DX: D64.9 Anemia, unspecified (principal)

== ENCOUNTER → 2017-10-10 | Outpatient (CLI) | payer OTHER ==
[~2017-10-10] MED LIST changes: +BISM1CAP PO; -CRFUDL PO; -FERR1TAB13 PO; -MULT-506 PO; +PANT1TAB3 PO; -PRT40 PO
--- NOTE | 2017-10-10 16:14 | DIAGNOSTIC IMAGING REPORT ---
(CHEST) THORAX WITHOUT CT DOSE: 436.42 mGy.cm CLINICAL HISTORY: 82 years-old Female with ABNORMAL WT LOSS, DIARRHEA. Acute weight loss with diarrhea TECHNIQUE: Multiaxial CT images of the chest were performed without contrast. A dose lowering technique was utilized adhering to the principles of ALARA. COMPARISON: CT abdomen and pelvis of same day, CTA chest 06/05/2010 FINDINGS: Heterogeneous enlarged thyroid without definite discrete nodule identified. No pathologically enlarged lymph nodes identified. Prominent precarinal lymph node measures 8 mm in short axis, likely reactive. Heart is normal in size without pericardial effusion. Coronary arterial calcifications are noted. No thoracic aortic aneurysm. Extensive calcifications of the aorta. Moderate to severe upper lobe predominant centrilobular emphysema. There is a large cystic and groundglass attenuating focus within the left upper lobe involving the anterior segment and superior segment lingula measuring up to 5.7 x 4.8 x 7.6 cm with linear consolidative opacity along the superior anterior margin measuring up to 2.5 x 0.5 cm as seen on image 99 series 4. This lesion abuts the anterior and medial pleural margins. 5 mm solid nodule of the basal left lower lobe is seen on image 198 series 4 with adjacent groundglass opacity. Mild tree-in-bud nodularity seen within the lung bases. Moderate biapical pleural-parenchymal scarring with pleural calcifications. Unchanged. There is of mucous plugging plugging are noted within the inferior segment lingula and right middle lobe. Calcifications are noted within the tracheobronchial tree. Mild bronchiectasis of the right lower lobe. Solid nodules are seen within the right upper lobe and superior segment right lower lobe measuring up to 3 mm. No acute process of the imaged upper abdomen. Soft tissues are unremarkable. Bones appear intact without suspicious lytic or blastic bony lesions identified. Multilevel endplate spurring and facet arthrosis with mild bone demineralization. IMPRESSION: 1. Large cystic and groundglass attenuating focus within the left upper lobe measures up to 7.6 cm and demonstrates a linear consolidative 2.5 cm opacity along its anterosuperior margin. These findings are suspicious for primary bronchogenic carcinoma (likely adenocarcinoma) with area of scarring from chronic inflammation thought to be less likely. 2. Indeterminate 5 mm solid nodule of the left lower lobe with adjacent groundglass opacity may reflect site of metastatic disease. 3. Emphysema with subsegmental tree-in-bud nodularity of the lung bases suggests infectious bronchiolitis. Additional scattered pulmonary nodules measure up to 3 mm. 4. Mild bronchiectasis with multifocal areas of mucous plugging. 5. No pathologic adenopathy. Electronically signed by: Robin Chapman M.D. 10/10/2017 4:12 PM Dictated Date/Time: 10/10/2017 3:59 PM
--- NOTE | 2017-10-10 16:27 | DIAGNOSTIC IMAGING REPORT ---
ABD/PELVIS ORAL CONT ONLY CT DOSE: HISTORY: Weight loss ABNORMAL WT LOSS,DIARRHEA TECHNIQUE: Multiaxial CT images of the abdomen and pelvis were performed following the use of oral contrast. A dose lowering technique was utilized adhering to the principles of ALARA. COMPARISON STUDY: None. FINDINGS: Lung bases are clear. There is a 3 mm pleural-based nodule anterior aspect of the lingula. This is a low suspicion finding. Liver is unremarkable in overall morphology. Spleen is unremarkable. Left kidney is negative for calcification or hydronephrosis. Right kidney is anterior in location. mild fullness of the renal collecting system. There is a 3.8 x 2.9 cm lateral cyst. There is a 3 mm nonobstructing calcification mid pole right kidney. 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 Right-sided ostomy. Normal appendix. Bowel pattern is nonobstructive. Fecal impaction. Bladder is midline. No significant abdominal pelvic or inguinal adenopathy. Survey evaluation of the osseous structures demonstrates focal areas of demineralization medial aspects of the iliac wings bilaterally. These are entirely symmetric raising the possibility of artifactual demineralization. Moderate degenerative change of the lumbar spine. IMPRESSION: 1. 4 mm x 3 mm pleural-based nodule anterior aspect lingula 2. Ectopically positioned right kidney demonstrating a 3.8 x 2.9 cm renal cyst. 3. Nonobstructing 3 mm right renal calcification. 4. Right-sided ostomy with a nonobstructive bowel pattern. 5. Fecal impaction. 6. Osteopenia. The above report was generated using voice recognition software. It may contain grammatical, syntax or spelling errors. Electronically signed by: Kevin Bass M.D. 10/10/2017 4:26 PM Dictated Date/Time: 10/10/2017 4:17 PM
== END | disposition home or self-care (01) ==
LOC: C.CTS 15:27
PROVIDERS: ATTEND Internal Medicine Gastroenterology
DX: R63.4 Abnormal weight loss (principal); R19.7 Diarrhea, unspecified; N20.0 Calculus of kidney; N28.1 Cyst of kidney, acquired; R91.8 Other nonspecific abnormal finding of lung field; J47.9 Bronchiectasis, uncomplicated

== ENCOUNTER → 2017-10-18 | Day surgery (SDC) | payer OTHER ==
[2017-10-09 10:36] VITALS: Ht 156.2 cm; Wt 36.4 kg
[~2017-10-18] VITALS: Ht 156.2 cm; Wt 36.4 kg
[~2017-10-18] MED LIST changes: +ATROPINE SULFATE 0.1 MG/ML 5ML SYR IV PRN; +EpHEDrine SULFATE INJ 50 MG/ML AMP IV PRN; +LIDOCAINE HCL 2% 2 ML VIAL (20MG/ML) ONE; +PROPOFOL IV EMULSION 10 MG/ML 20 ML VIAL ONE; +SODIUM CHLORIDE 0.9% 500ML 500 ML IV ONE
--- NOTE | 2017-10-18 14:50 | Endo History and Physical ---
History & Physical Date of Service: October 18, 2017. Chief Complaint: F/U ULCER Referring Physician: DR. ARMANDO LOPEZ History of Present Illness f/u ulcer Past Surgical History Hx Cardiac Surgery: No Hx Internal Defibrillator: No Hx Pacemaker: No Hx Abdominal Surgery: Yes (HEMIGASTRECTOMY WITH RICHIE & COLOSTOMY, X 3) Hx of Implantable Prosthesis: No Hx Post-Op Nausea and Vomiting: No Hx Cancer Surgery: No Hx Thoracic Surgery: No Hx Orthopedic: No Hx Urinary Tract Surgery: No Family History None Social History Smoking Status: Former Smoker Hx Substance Use: No Hx Alcohol Use: No Allergies Coded Allergies: No Known Allergies (Verified , 10/09/17) Current Medications Reported Home Medications Medications Dose Route/Sig Max Daily Dose Days Date Category Protonix (Pantoprazole) 40 Mg Tab 40 Mg PO BID 10/09/17 Reported Pylera (Bismuth Subcitrate Potassium-M) 1 Cap Cap 3 Cap PO QID 10/09/17 Reported Tylenol (Acetaminophen) 500 Mg Tab 500 Mg PO Q4H PRN 07/23/17 Reported Lexapro (Escitalopram Oxalate) 10 Mg Tab 10 Mg PO HS 03/31/15 Reported Tiazac (Diltiazem HCl) 180 Mg Capcr 180 Mg PO QAM 03/31/15 Reported Vital Signs Weight (Kilograms): 36.36 Height (Feet): 5 Height (Inches): 1.5 Date Time Temp Pulse Resp B/P (MAP) Pulse Ox O2 Delivery O2 Flow Rate FiO2 10/18/17 13:56 36.6 67 20 157/69 (98) 96 Room Air Physical Exam General Appearance: WD/WN, no apparent distress Respiratory/Chest: Auscultation: breath sounds normal Cardiovascular: Heart Auscultation: RRR Abdomen: Bowel Sounds: normal Inspection & Palpation: soft, non-distended, no tenderness, guarding & rebound Assessment and Plan egd/fo gu followup
--- NOTE | 2017-10-18 15:26 | Anesthesiology Progress Note ---
Anesthesia Post Op Note Date & Time October 18, 2017 at 15:26 Vital Signs Pain Intensity: 0 Vital Signs Past 12 Hours Date Time Temp Pulse Resp B/P (MAP) Pulse Ox O2 Delivery O2 Flow Rate FiO2 10/18/17 13:56 36.6 67 20 157/69 (98) 96 Room Air Notes Mental Status: alert / awake / arousable, participated in evaluation Pt Amnestic to Procedure: Yes Nausea / Vomiting: adequately controlled Pain: adequately controlled Airway Patency, RR, SpO2: stable & adequate BP & HR: stable & adequate Hydration State: stable & adequate Anesthetic Complications: no major complications apparent
[2017-10-18 15:55] VITALS: BP 161/62; PULSE 70; O2SAT 96
--- NOTE | 2017-10-18 16:15 | GI REPORT ---
Patient Name: Bartolo Naranjo Procedure Date: 10/18/2017 2:40 PM Date of : 1935 Admit Type: Outpatient Age: 82 Gender: Female Attending MD: Segun Szymanski MD Procedure: Upper GI endoscopy Providers: Segun Szymanski MD Referring MD: Terrance Chaney MD Indications: Acute gastric ulcer, Follow-up of acute gastric ulcer Medicines: Propofol per Anesthesia Complications: No immediate complications. Estimated blood loss: None. Estimated Blood Loss: Estimated blood loss: none. Estimated blood loss: none. Procedure: Pre-Anesthesia Assessment: - Prior to the procedure, a History and Physical was performed, and patient medications and allergies were reviewed. The patient's tolerance of previous anesthesia was also reviewed. The risks and benefits of the procedure and the sedation options and risks were discussed with the patient. All questions were answered, and informed consent was obtained. Prior Anticoagulants: The patient has taken no previous anticoagulant or antiplatelet agents. ASA Grade Assessment: III - A patient with severe systemic disease. After reviewing the risks and benefits, the patient was deemed in satisfactory condition to undergo the procedure. After obtaining informed consent, the endoscope was passed under direct vision. Throughout the procedure, the patient's blood pressure, pulse, and oxygen saturations were monitored continuously. The scope was introduced through the mouth, and advanced to the second part of duodenum. The upper GI endoscopy was accomplished without difficulty. The patient tolerated the procedure well. Findings: The examined esophagus was normal. The entire examined stomach was normal. Evidence of a patent Billroth II gastrojejunostomy was found. The gastrojejunal anastomosis was characterized by healthy appearing mucosa. This was traversed. The efferent limb was examined. The afferent limb was examined. The post anastamotic ulcer is healed. Retained gastric contents are not identified on this exam. The cardia and gastric fundus were normal on retroflexion. Impression: - Normal esophagus. - Normal stomach. - Patent Billroth II gastrojejunostomy was found, characterized by healthy appearing mucosa. - No specimens collected. Recommendation: - Discharge patient to home. - Resume regular diet. - Continue present medications. - Return to GI clinic. - Return to referring physician as previously scheduled. MD Segun Jurado MD 10/18/2017 4:14:37 PM This report has been signed electronically. Note Initiated On: 10/18/2017 2:40 PM Number of Addenda: 0 I attest to the content of the Intraoperative Record and orders documented therein, exceptions below {[id number]}
--- NOTE | 2017-10-18 16:21 | Discharge Instructions ---
Endoscopy Patient Instructions Date / Procedure(s) Performed October 18, 2017. EGD Allergy Information Coded Allergies: No Known Allergies (Verified , 10/09/17) Discharge Date / Findings October 18, 2017. healed Medication Instructions Restart Stopped Medication(s): Reported Home Medications Medications Dose Route/Sig Max Daily Dose Days Date Category Protonix (Pantoprazole) 40 Mg Tab 40 Mg PO BID 10/09/17 Reported Pylera (Bismuth Subcitrate Potassium-M) 1 Cap Cap 3 Cap PO QID 10/09/17 Reported Tylenol (Acetaminophen) 500 Mg Tab 500 Mg PO Q4H PRN 07/23/17 Reported Lexapro (Escitalopram Oxalate) 10 Mg Tab 10 Mg PO HS 03/31/15 Reported Tiazac (Diltiazem HCl) 180 Mg Capcr 180 Mg PO QAM 03/31/15 Reported Reported Home Medications Medications Dose Route/Sig Max Daily Dose Days Date Category Protonix (Pantoprazole) 40 Mg Tab 40 Mg PO BID 10/09/17 Reported Pylera (Bismuth Subcitrate Potassium-M) 1 Cap Cap 3 Cap PO QID 10/09/17 Reported Tylenol (Acetaminophen) 500 Mg Tab 500 Mg PO Q4H PRN 07/23/17 Reported Lexapro (Escitalopram Oxalate) 10 Mg Tab 10 Mg PO HS 03/31/15 Reported Tiazac (Diltiazem HCl) 180 Mg Capcr 180 Mg PO QAM 03/31/15 Reported Provider Instructions Activity Restrictions - No exercising or heavy lifting for 24 hours. - Do not drink alcohol the day of the procedure. - Do not drive a car or operate machinery until the day after the procedure. - Do not make any important decisions or sign important papers in 24 hours after the procedure. Following Day: - Return to full activity which may include returning to work/school. Diet Start your diet with liquids and light foods (jello, soup, juice, toast). Then eat your usual diet if not nauseated. Treatment For Common After Affects For mild abdominal pain, bloating, or excessive gas: - Rest - Eat lightly - Lie on right side Follow-Up Information Follow-up with DR. ARMANDO LOPEZ as scheduled Anesthesia Information What You Should Know You have had a procedure that required some medicine to reduce anxiety and discomfort. This treatment is called moderate sedation. After receiving the treatment, you may be sleepy, but you will be able to breathe on your own. The effects of the treatment may last for several hours. Follow these instructions along with Activity/Diet recommendations noted above: * Do NOT do anything where dizziness or clumsiness would be dangerous. * Rest quietly at home today, then you can be up and about tomorrow. * Have a responsible person stay with you the rest of today. * You may have had an I.V. today. If so, you may take the dressing off later today. Recommendations Call your doctor if: * Trouble breathing * Continuous vomiting for more than 24 hours * Temperature above 101 degrees * Severe abdominal pain or bloating * Pain not relieved by pain medicine ordered * There is increased drainage or redness from any incision * A large amount of rectal bleeding greater than 2-3 tablespoons. (If you had a polyp/s removed or have hemorrhoids, a small amount of blood - from the rectum is to be expected.) * You have any unanswered questions or concerns. IN THE EVENT OF A SERIOUS EMERGENCY, GO TO THE NEAREST EMERGENCY ROOM Your discharge instructions were prepared by provider Segun Szymanski. Patient Instructions Signature Page Bartolo Naranjo Patient (or Guardian) Signature/Date: I have read and understand the instructions given to me by my caregivers. Caregiver/RN/Doctor Signature/Date: The above-named patient and/or guardian has received patient instructions on this date. + Original Patient Signature Page (only) stays with chart. Please make copy for patient.
== END | disposition home or self-care (01) ==
LOC: C.GI 12:59
PROVIDERS: ATTEND Internal Medicine Gastroenterology
DX: K25.9 Gastric ulcer, unspecified as acute or chronic, without hemorrhage or perforation (principal); K21.9 Gastro-esophageal reflux disease without esophagitis; N18.9 Chronic kidney disease, unspecified; Z85.828 Personal history of other malignant neoplasm of skin; Z86.73 Personal history of transient ischemic attack (TIA), and cerebral infarction without residual deficits; Z90.49 Acquired absence of other specified parts of digestive tract; Z87.891 Personal history of nicotine dependence; Z93.4 Other artificial openings of gastrointestinal tract status

== ENCOUNTER → 2017-10-25 | Outpatient (CLI) | payer OTHER ==
[~2017-10-25] MED LIST changes: -ATROPINE SULFATE 0.1 MG/ML 5ML SYR IV PRN; -EpHEDrine SULFATE INJ 50 MG/ML AMP IV PRN; -LIDOCAINE HCL 2% 2 ML VIAL (20MG/ML) ONE; -LORA-741 PO; -PROPOFOL IV EMULSION 10 MG/ML 20 ML VIAL ONE; -SODIUM CHLORIDE 0.9% 500ML 500 ML IV ONE
--- NOTE | 2017-10-25 10:17 | DIAGNOSTIC IMAGING REPORT ---
PET/CT SKULL-THIGH CLINICAL HISTORY: 82 years-old Female presenting with PULMONARY NODULE, groundglass left upper lobe nodule, history of smoking. TECHNIQUE: PET/CT was performed from the skull base through the proximal thighs following the intravenous administration of 13.551 mCi of F18-FDG. Blood glucose level 96 mg/dL. The injection was performed at 7:20 AM and imaging began at 8:[address] was performed for attenuation correction purposes and anatomic localization. COMPARISON: CT chest from 10/10/2017. CT DOSE (mGy.cm): The estimated cumulative dose is 1156.30. FINDINGS: Head and neck: No FDG-avid mass in the visualized portion of the head or neck. No FDG avid or enlarged lymph nodes in the neck. Aerated secretions and layering fluid in the left maxillary sinus. Chest: Normal thyroid and thoracic inlet. No FDG avid axillary, supraclavicular, or mediastinal lymphadenopathy. Evaluation of the ramin on anatomic imaging limited without intravenous contrast. Atherosclerosis of the aorta. Normal heart size. Coronary artery and aortic valve calcification. No pericardial or pleural effusion. FDG avidity in the region of the groundglass mass in the anterior segment of the left upper lobe (max SUV 2.06 in comparison to uninvolved lung with a max SUV of 0.32). FDG avidity is primarily peripheral and greatest at the site of linear consolidation. Several of the larger pulmonary nodules demonstrate minimal FDG avidity (max SUV on the right 0.51 and on the left max SUV 0.79). There is also mild FDG avidity at the right apex of the site of pleural parenchymal scarring (max SUV 1.76). Background mild emphysema. Abdomen and pelvis: Normal physiologic distribution of radiotracer in the gastrointestinal and genitourinary tracts. No FDG avid lymphadenopathy or mass lesion. Prominent photopenic right renal cyst. Postsurgical changes of subtotal colectomy. Right mid abdomen ascending colostomy. No bowel obstruction. Dense large stool burden in the presumably blind-ending rectum/Milton's pouch. Atherosclerosis of the abdominal aorta with mild infrarenal ectasia measuring up to 2.4 cm in diameter. No free fluid or gas. Cachexia. Musculoskeletal: No FDG-avid or destructive osseous lesion. IMPRESSION: 1. Initial PET/CT demonstrates mild FDG avidity of the predominantly groundglass mass in the anterior segment of the left upper lobe. FDG avidity relative to uninvolved lung parenchyma is significantly elevated. The appearance combined with metabolic activity is suspicious for an adenomatous lesion, adenocarcinoma or adenocarcinoma in situ not excluded. Surgical consultation recommended. 2. Bronchiectasis, multiple pulmonary nodules, and tree-in-bud opacities raise concern for mycobacterial avium intracellulare. 3. Aerated secretions and layering fluid in the left maxillary sinus raises concern for acute sinusitis. Electronically signed by: Bebo Rodriges M.D. 10/25/2017 10:16 AM Dictated Date/Time: 10/25/2017 9:57 AM
== END | disposition home or self-care (01) ==
LOC: C.PET 07:05
PROVIDERS: ATTEND Surgery
DX: R91.1 Solitary pulmonary nodule (principal)

== ENCOUNTER → 2017-10-30 | Outpatient (CLI) | payer OTHER ==
[2017-10-30 18:37] LABS: BASO % 0.3 %; BASO ABS # 0.02 K/uL (0-0.2); EOS % 4.8 %; EOS ABS # 0.33 K/uL (0-0.5); HEMATOCRIT 37.1 % (37-47); HEMOGLOBIN 12.5 g/dL (12.0-16.0); LYMPH % 23.5 %; LYMPH ABS # 1.62 K/uL (1.2-3.4); MEAN CELL VOLUME 95.1 fL (80-100); MEAN CORPUSCULAR HEMOGLOBIN 32.1 pg (25-34); MEAN CORPUSCULAR HGB CONC 33.7 g/dl (32-36); MEAN PLATELET VOLUME 10.6 fL (7.4-10.4); MONO % 9.3 %; MONO ABS # 0.64 K/uL (0.11-0.59); NEUT % 62.1 %; NEUT ABS # 4.28 K/uL (1.4-6.5); PLATELET COUNT 337 K/uL (130-400); RED CELL DISTRIBUTION WIDTH CV 14.1 % (11.5-14.5); RED CELL DISTRIBUTION WIDTH SD 48.6 fL (36.4-46.3); WHITE BLOOD COUNT 6.89 K/uL (4.8-10.8)
[2017-10-30 18:45] LABS: BLOOD UREA NITROGEN 17 mg/dl (7-18); CALCIUM 8.8 mg/dl (8.5-10.1); CARBON DIOXIDE 23 mmol/L (21-32); CREATININE 1.45 mg/dl (0.60-1.20); GLUCOSE 93 mg/dl (70-99); POTASSIUM 4.6 mmol/L (3.5-5.1); SODIUM 139 mmol/L (136-145)
== END | disposition home or self-care (01) ==
LOC: C.LABSPEC 17:13
PROVIDERS: ATTEND Internal Medicine
DX: Z01.812 Encounter for preprocedural laboratory examination (principal); C34.90 Malignant neoplasm of unspecified part of unspecified bronchus or lung

== ENCOUNTER → 2018-01-02 | Outpatient (CLI) | payer OTHER ==
[~2018-01-02] MED LIST changes: -BISM1CAP PO; +RXC5 PO
--- NOTE | 2018-01-02 09:59 | DIAGNOSTIC IMAGING REPORT ---
CHEST 2 VIEWS ROUTINE CLINICAL HISTORY: R91.1 Lung [id number] COMPARISON STUDY: 12/11/2017 FINDINGS: There is pulmonary emphysema. No pneumothorax is visualized. Postsurgical changes are present within the left hemithorax. There is left-sided volume loss. There are chronic left-sided rib deformities. There is stable blunting of the costophrenic angles.[ IMPRESSION: Stable postsurgical changes on the left. No evidence of pneumothorax. No evidence of acute parenchymal consolidation. Emphysema. Electronically signed by: Gunnar Ricketts M.D. 01/02/2018 9:58 AM Dictated Date/Time: 01/02/2018 9:57 AM
== END | disposition home or self-care (01) ==
LOC: C.RAD1850 09:23
PROVIDERS: ATTEND Physician Assistant
DX: R91.1 Solitary pulmonary nodule (principal); J43.9 Emphysema, unspecified